=== PATIENT | male | born 1940 | race Caucasian/White ===

== ENCOUNTER → 2016-12-28 | Outpatient (CLI) | payer OTHER, MEDICARE ==
--- NOTE | 2016-12-28 17:52 | DX ---
Cervical Spine, Two Views History: Follow up fusion. Comparison: August 31 Findings: Alignment remains anatomic, straight. Degenerative disk space narrowing between C4 and C6 r emains. An anterior compression plate at C6-C7 with an interbody bone plug within the disk space are in stable position. Bone detail is partially obscured by the patient's shoulders on the lateral view. There is no prevertebral soft tissue swelling. Hardware appears intact. Degenerative facet disease o n the right at C3-C4 and on the left at C4-C5 is stable. There is chronic left carotid bifurcation va scular calcification. A surgical drain is no longer present. Impression: Stable postoperative alignment.
== END ==
LOC: FIMAGING 16:11
PROVIDERS: ATTEND Physician Assistant Surgical
DX: Z09 Encounter for follow-up examination after completed treatment for conditions other than malignant neoplasm (principal); Z98.1 Arthrodesis status

== ENCOUNTER → 2017-03-13 | Outpatient (CLI) | payer OTHER, MEDICARE | LOC: FIMAGING 16:08 | PROVIDERS: ATTEND Physician Assistant Surgical | DX: Z09 Encounter for follow-up examination after completed treatment for conditions other than malignant neoplasm (principal); Z98.1 Arthrodesis status ==

== ENCOUNTER → 2017-08-22 | Outpatient (CLI) | payer OTHER, MEDICARE | LOC: FIMAGING 16:29 | PROVIDERS: ATTEND Physician Assistant Surgical | DX: Z09 Encounter for follow-up examination after completed treatment for conditions other than malignant neoplasm (principal); Z98.1 Arthrodesis status; M47.812 Spondylosis without myelopathy or radiculopathy, cervical region; M43.12 Spondylolisthesis, cervical region ==

== ENCOUNTER → 2017-11-08 | Outpatient (CLI) | payer OTHER, MEDICARE | LOC: FIMAGING 12:18 | PROVIDERS: ATTEND Family Medicine Sports Medicine | DX: Z01.818 Encounter for other preprocedural examination (principal); J98.4 Other disorders of lung; F17.210 Nicotine dependence, cigarettes, uncomplicated ==

== ENCOUNTER → 2018-09-07 | Outpatient (CLI) | payer OTHER, MEDICARE | LOC: FLAB 14:32 | PROVIDERS: ATTEND Physician Assistant Surgical | DX: M47.812 Spondylosis without myelopathy or radiculopathy, cervical region (principal); M43.12 Spondylolisthesis, cervical region; M50.321 Other cervical disc degeneration at C4-C5 level ==

== ENCOUNTER → 2018-09-25 | Outpatient (CLI) | payer OTHER, MEDICARE | LOC: FIMAGING 18:35 | PROVIDERS: ATTEND Physician Assistant Surgical | DX: M51.36 Other intervertebral disc degeneration, lumbar region (principal); M48.061 Spinal stenosis, lumbar region without neurogenic claudication ==

== ENCOUNTER 2018-11-29 05:32 | Observation (INO) | payer OTHER, MEDICARE ==
[2018-11-29] MEDS ORDERED: ceFAZolin 2 GM/DEXTROSE 100 ML IV ONE (05:46)
[2018-11-29] MEDS ORDERED: LR 1,000 ML IV ONE (05:48)
[2018-11-29] MEDS ORDERED: TRANEXAMIC ACID 1,000 MG in NS 100 ML IV ONE (06:00)
[2018-11-29] MEDS ORDERED: GABAPENTIN 300 MG CAP PO ONE (06:00)
[2018-11-29] MEDS ORDERED: ACETAMINOPHEN 500 MG TAB PO ONE (06:00)
[2018-11-29] MEDS ORDERED: BUPIVACAINE/EPI 0.25% 30 ML SDV ONE ×2 (06:48→07:56)
[2018-11-29] MEDS ORDERED: BACITRACIN 50,000 UNITS/10 ML SYR IRR ONE (06:48)
[2018-11-29] MEDS ORDERED: THROMBIN (BOVINE) 5,000 UNIT VIAL TP ONE (06:48)
[2018-11-29] MEDS ORDERED: CHLORHEXIDINE GLUC HIBICLENS 118 ML BTL TP ONE (06:48)
[2018-11-29] MEDS ORDERED: fentaNYL 250 MCG/5 ML INJ ONE (06:52)
[2018-11-29] MEDS ORDERED: MIDAZOLAM 2 MG/2 ML VIAL IVP ONE (06:54)
--- NOTE | 2018-11-29 06:56 | PDANEPAE ---
ANE History of Present Illness 77 year old active male for L2-L5 microdisc. History of asthma. ANE Past Medical History - Cardiovascular History Hx Hypertension: No Hx Arrhythmias: No Hx Chest Pain: No Hx Coronary Artery / Peripheral Vascular Disease: No Hx CHF / Valvular Disease: No Hx Palpitations: No - Pulmonary History Hx COPD: No Hx Asthma/Reactive Airway Disease: Yes Hx Recent Upper Respiratory Infection: No Hx Oxygen in Use at Home: No Hx Sleep Apnea: No Sleep Apnea Screening Result - Last Documented: Positive Pulmonary History Comment: EXERCISE INDUCED SOB. HAS INHALER FOR PRN NEED - Neurologic History Hx Cerebrovascular Accident: No Hx Seizures: No Hx Dementia: No - Endocrine History Hx Diabetes: No - Renal History Hx Renal Disorders: Yes Renal History Comment: PROSTATE CA - Liver History Hx Hepatic Disorders: No - Neurological & Psychiatric Hx Hx Neurological and Psychiatric Disorders: No - Cancer History Cancer History Comment: MELANOMA. PROSTATE - Congenital Disorder History Hx Congenital Disorders: No - GI History Hx Gastrointestinal Disorders: No - Other Health History Other Health History: DDD. SPINAL STENOSIS - Chronic Pain History Chronic Pain: Yes (RENARD BUTTOCKS DOWN TO LEGS) - Surgical History Prior Surgeries: RT TOTAL KNEE 11/2017. ACDF CERVICAL-THORACIC 08/2016. RENARD KNEE SCOPES. RADIO ACTIVE SEED IMPLANTS FOR PROSTATE CA ANE Review of Systems Review of systems is: negative Review of Systems: - Exercise capacity METS (RN): 4 METS ANE Patient History - Allergies Allergies/Adverse Reactions: No Known Allergies Allergy (Verified 08/29/16 11:11) - Home Medications Home Medications: Carboxymethylcellulose 1% [Refresh Celluvisc (*)] 1 drop EACHEYE DAILY PRN 11/15 [Last Taken 11/29/18] Glucosamine Sulfate [Glucosamine Sulfate 500 MG (*)] 500 mg PO DAILY 11/15/18 [ Last Taken 11/22/18] Advil DAILY 11/22/18 [Last Taken 11/22/18] Gabapentin BID 11/22/18 [Last Taken 11/28/18] Proair Hfa PRN 11/22/18 [Last Taken 11/29/18] - NPO status NPO Since - Liquids (Date): 11/28/18 NPO Since - Liquids (Time): 22:00 NPO Since - Solids (Date): 11/28/18 NPO Since - Solids (Time): 20:00 - Smoking Hx Smoking Status: Former smoker - Family Anes Hx Family Hx Anesthesia Complications: none ANE Labs/Vital Signs - Vital Signs Blood Pressure: 131/82 Heart Rate: 94 Respiratory Rate: 16 O2 Sat (%): 91 Height: 172.72 cm Weight: 69.539 kg ANE Physical Exam - Airway Neck exam: FROM, decreased ROM Mallampati Score: Class 2 Mouth exam: normal dental/mouth exam - Pulmonary Pulmonary: no respiratory distress - Cardiovascular Cardiovascular: regular rate and rhythym - ASA Status ASA Status: II ANE Anesthesia Plan Anesthesia Plan: general endotracheal anesthesia
[2018-11-29] MEDS ORDERED: PROPOFOL/EMULSION 500 MG/50 ML BOTTLE IV ONE ×2 (06:58)
[2018-11-29] MEDS ORDERED: MIDAZOLAM 2 MG/2 ML VIAL ONE (06:58)
--- NOTE | 2018-11-29 06:58 | PDHPUP ---
History & Physical Update H&P update statement: This history and physical update is based on an assessment of the patient which was completed after admission or registration (within 24 hours), but prior to the surgery/procedure. H&P update: H&P reviewed & patient examined, no change in patient's condition since H&P completed
[2018-11-29] MEDS ORDERED: fentaNYL 100 MCG/2 ML INJ IVP PRN (07:41)
[2018-11-29] MEDS ORDERED: oxyCODONE IR 5 MG TAB PO PRN ×2 (07:41→10:02)
[2018-11-29] MEDS ORDERED: NALOXONE HCL 0.4 MG/ML INJ IVP PRN (07:41)
[2018-11-29] MEDS ORDERED: ALBUTEROL 3 ML DEYVIAL IH PRN (07:41)
[2018-11-29] MEDS ORDERED: DEXAMETHASONE 4 MG/ML VIAL IVP PRN (07:41)
[2018-11-29] MEDS ORDERED: HYDROCODONE/APAP 5/325 TAB PO PRN (07:41)
[2018-11-29] MEDS ORDERED: LABETALOL HCL 5 MG/ML 20 ML MDV IVP PRN (07:41)
[2018-11-29] MEDS ORDERED: ONDANSETRON 4 MG/2 ML VIAL IVP PRN ×2 (07:41→10:02)
[2018-11-29] MEDS ORDERED: LR 500 ML IV PRN (07:41)
[2018-11-29] MEDS ORDERED: SURGIFLO MATRIX KIT WITH THROMBIN 8 ML TP ONE (09:27)
[2018-11-29] MEDS ORDERED: CARBOXYMETHYLCELLULOSE 1% 0.4 ML DROPERETTE EACHEYE PRN (10:01)
[2018-11-29] MEDS ORDERED: BISACODYL 10 MG SUPP PR PRN (10:02)
[2018-11-29] MEDS ORDERED: diphenhydrAMINE 25 MG CAP PO PRN (10:02)
[2018-11-29] MEDS ORDERED: ONDANSETRON DISINTEGRATING 4 MG TAB PO PRN (10:02)
[2018-11-29] MEDS ORDERED: LACTULOSE 20 GM/30 ML UDCUP PO PRN (10:02)
[2018-11-29] MEDS ORDERED: MAGNESIUM HYDROXIDE 30 ML UDCUP PO PRN (10:02)
[2018-11-29] MEDS ORDERED: METHOCARBAMOL 750 MG TAB PO PRN (10:02)
--- NOTE | 2018-11-29 10:06 | SOAPPROG ---
SOAP Progress Note Assessment/Plan: Assessment: 77 yo M sp L2-5 microdecompression Plan: stable to 3N hopefully dc home in 3 hours please call with neuro changes MISTY x 1 11/29/18 10:05 Subjective: + back pain, no leg pain. Objective: Vital Signs Temp Pulse Resp BP Pulse Ox 36.8 C 94 16 131/82 H 91 L 11/29/18 06:04 11/29/18 06:56 11/29/18 06:56 11/29/18 06:56 11/29/18 06:56 Awake, alert PERRL, no facial droop JUAN M x 4 + light touch ICD10 Worksheet Patient Problems: Problems Problem Status Onset Paresthesia of left arm Acute
[2018-11-29] MEDS ORDERED: NS 1,000 ML IV SCH (10:15)
--- NOTE | 2018-11-29 10:45 | POSTANESTH ---
Post Anesthetic Evaluation Cardiovascular Status: Normal, Stable Respiratory Status: Normal, Stable Level of Consciousness/Mental Status: Mildly Sleepy, Arousable Pain Control: Adequate, Prn Tx Ordered Nausea/Vomiting Control: Adequate, Prn Tx Ordered Complications Possibly Related to Anesthesia: None Noted
--- NOTE | 2018-11-29 12:02 | GOP ---
DATE OF OPERATION: 11/29/2018 SURGEON: Messi Bravo MD NEUROSURGEON: Messi Bravo MD. DRAPERY HAND: Shawn Orozco PA-C. ANESTHESIA: General endotracheal. PREOPERATIVE DIAGNOSIS: Critical multilevel lumbar spinal stenosis with severe lateral recess imping ement, intractable neurogenic claudication, and bilateral lower extremity radiculopathy. Failed cons ervative care. POSTOPERATIVE DIAGNOSIS: Critical multilevel lumbar spinal stenosis with severe lateral recess impin gement, intractable neurogenic claudication, and bilateral lower extremity radiculopathy. Failed con servative care. PROCEDURE PERFORMED: Minimally invasive left-sided L2-3, L3-4, and L4-5 posterior hemilaminectomy, m edial facetectomy, foraminotomy, and central canal decompression with right-sided decompression throu gh a left-sided approach. Use of intraoperative microscopy fluoroscopy and intraoperative neurophysi ologic testing. FINDINGS: ESTIMATED BLOOD LOSS: 100 cc. INDICATIONS: The patient is a 77-year-old man with intractable bilateral lower extremity radiculopat hies and neurogenic claudication secondary to multilevel critical spinal stenosis, who has failed ext ensive conservative care and presents now for multilevel micro decompression. DESCRIPTION OF PROCEDURE: After informed consent was obtained, the patient was taken to the operatin g room and placed in the prone position on the Holger frame. The lumbosacral area was prepped and dr aped in a sterile fashion. After fluoroscopic localization at correct levels, the subcutaneous and i ntramuscular tissues were infiltrated with local anesthesia. A midline linear incision was then crea justin over the L2 to L5 spinous processes. This was carried down to the fascial layer, which was then incised using the monopolar electrocautery and carried to the subperiosteal plane along the spinous p rocesses and lamina on the left. Intraoperative fluoroscopy was again used to verify the correct lev els. Following this, the microscope was brought in and left-sided posterior hemilaminectomy and medial fac etectomies were performed at L2-3, L3-4, and L4-5 with bilateral decompression of the central canal l ateral recesses by angling the instruments and microscope across the midline. There was an extensive amount of arthritis and central canal lateral recess and foraminal stenosis that was widely decompre ssed. Meticulous hemostasis was achieved. Using careful bipolar electrocauterization along with Gel foam soaked in thrombin and Floseal. Following this, a drain was placed. The subcutaneous and intra muscular tissues were re-infiltrated with local anesthesia. The wound was closed in a layered fashio n using interrupted Vicryl sutures, followed by Steri-Strips on the skin. COMPLICATIONS: None. DISPOSITION: The patient is currently in the process of being repositioned for extubation. /[id number]/MODL
[2018-11-29 14:01] VITALS: BP 107/75
[2018-11-29] MEDS ORDERED: ceFAZolin 2 GM/DEXTROSE 100 ML IV SCH (16:00)
[2018-11-29] MEDS ORDERED: POLYETHYLENE GLYCOL 3350 17 GM PKT PO SCH (16:00)
[2018-11-29] MEDS ORDERED: FAMOTIDINE 20 MG TAB PO SCH (21:00)
[2018-11-29] MEDS ORDERED: SENNOSIDES/DOCUSATE SODIUM TAB PO SCH (21:00)
[2018-11-30] MEDS ORDERED: ENOXAPARIN 40 MG/0.4 ML SYR SC SCH (09:00)
== END 2018-11-29 14:09 | disposition home or self-care (01) ==
LOC: F3N 05:32
PROVIDERS: ADMIT Neurological Surgery; ATTEND Neurological Surgery
PROC: 00NY0ZZ Release Lumbar Spinal Cord, Open Approach (ICD-10-PCS; principal; 2018-11-29 07:15)
PROC: 01NB0ZZ Release Lumbar Nerve, Open Approach (ICD-10-PCS; principal; 2018-11-29 07:15)
PROC: 4A1004G Monitoring of Central Nervous Electrical Activity, Intraoperative, Open Approach (ICD-10-PCS; principal; 2018-11-29 07:15)
DX: M48.062 Spinal stenosis, lumbar region with neurogenic claudication (principal); M54.16 Radiculopathy, lumbar region; J45.909 Unspecified asthma, uncomplicated; G47.30 Sleep apnea, unspecified
CPT/HCPCS: 63047; 63048; J0690; J2250; J2704; J3010